=== PATIENT | male | born 1960 | race Caucasian/White ===

== ENCOUNTER → 2023-07-22 09:54 | Outpatient (REF) | payer BC, SELFPAY | LOC: HWRAD 09:54 | PROVIDERS: ATTENDING PHYSICIAN Family Medicine | DX: M54.50 Low back pain, unspecified (principal) | CPT/HCPCS: 72110 ==

== ENCOUNTER → 2023-08-12 09:16 | Outpatient (REF) | payer BC, SELFPAY | LOC: HWRAD 09:16 | PROVIDERS: ATTENDING PHYSICIAN Family Medicine | DX: R10.11 Right upper quadrant pain (principal); R07.81 Pleurodynia | CPT/HCPCS: 71101; 76700 ==

== ENCOUNTER → 2024-10-20 06:30 | Outpatient (REF) | payer OTHER, SELFPAY ==
[2024-10-20 10:11] LABS: Hematocrit 46.4 % (39.0-52.0); Hemoglobin 15.7 g/dL (13.0-18.0); Mean Corp Hgb Conc. 33.8 g/dL (33.0-37.0); Mean Corpuscular Volume 87.4 fL (80.0-94.0); Nucleated Red Blood Cells % 0 % (-); Platelet Count 204 10^3/uL (130-400); Red Cell Dist. Width 13.4 % (11.5-14.5)
[2024-10-20 10:37] LABS: ALT (SGPT) 64 U/L (0-50); AST (SGOT) 43 U/L (17-59); Albumin 4.8 g/dl (3.5-5.0); Alkaline Phosphatase 68 U/L (38-126); Blood Urea Nitrogen 13 mg/dl (9-20); Calcium 9.2 mg/dl (8.4-10.2); Carbon Dioxide 25 mmol/L (22-30); Chloride 109 mmol/L (98-107); Glucose 105 mg/dl (70-99); HDL Cholesterol 44 mg/dl; LDL Cholesterol, Calculated 149 mg/dl; Potassium 4.2 mmol/L (3.5-5.1); Sodium 140 mmol/L (135-145); Total Protein 7.2 g/dl (6.3-8.2); Uric Acid 7.3 mg/dl (3.5-8.5); Very Low Density Lipoprotein 42 mg/dl (0-30); eGFR > 60.00
[2024-10-20 10:49] LABS: Glycohemoglobin (HgbA1c) 5.9 % (4.0-5.6)
[2024-10-20 11:00] LABS: PSA, Total - Screen 1.97 ng/ml (0.0-4.0)
== END ==
LOC: HWLAB 06:30
PROVIDERS: ATTENDING PHYSICIAN Family Medicine
DX: N40.0 Benign prostatic hyperplasia without lower urinary tract symptoms (principal); I10 Essential (primary) hypertension; E78.2 Mixed hyperlipidemia; R73.9 Hyperglycemia, unspecified; Z87.39 Personal history of other diseases of the musculoskeletal system and connective tissue
CPT/HCPCS: 36415; 80053; 80061; 83036; 84550; 85025; G0103